=== PATIENT | female | born 1995 | race Caucasian/White ===

== ENCOUNTER 2016-09-24 14:32 | Emergency (ER) | payer OTHER ==
[~2016-09-24] VITALS: Ht 165.1 cm; Wt 77.1 kg
--- NOTE | 2016-09-24 15:07 | ED HEADACHE COMPLAINT ---
History of Present Illness General Chief Complaint: General Adult Stated Complaint: NAUSEA, VOMITING, MIGRAINE Source: patient, old records Exam Limitations: no limitations Vital Signs & Intake/Output Vital Signs & Intake/Output Vital Signs Date Time Temp Pulse Resp B/P B/P Pulse O2 O2 Flow FiO2 Mean Ox Delivery Rate 09/24 1654 97.9 62 18 111/65 99 Room Air 09/24 1440 97.7 58 16 126/78 99 Room Air Allergies Coded Allergies: amoxicillin (VIOLENTLY VOMITING 09/24/16) Reconcile Medications L-Norgest/E.estradion-E.estrad (Seasonique 0.15-0.03-0.01 Tab) 0.15 MG-30 MCG ( 84)/10 MCG (7) [id number] 1 TAB PO DAILY CONTROL (Reported) Multivitamin (Multi-Day Vitamins) 1 EACH TABLET 1 TAB PO DAILY SUPPLEMENT ( Reported) Triage Note: 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 PT STATES NOTHING WILL STAY DOWN AND NOW HER RODRIGUEZ IS GETTING WORSE. Triage Nurses Notes Reviewed? yes : No Patient currently breastfeeds: No HPI: Patient presents complaining of a migraine with photophobia as well as nausea and vomiting. Patient states she gets migraine whenever she gets dehydrated. The pain is frontal and is throbbing. There is no radiation of pain. She rates the headache at 8 out of 10. There is no neck pain. There is no fevers or chills. Past History Travel History Traveled to [place] past 21 day No Medical History Any Pertinent Medical History? see below for history Neurological: migraine Psychiatric: anxiety Surgical History Surgical History: non-contributory Psychosocial History What is your primary language Prydeinig Tobacco Use: Current Daily Use Daily Tobacco Use Amount/Type: => 5 Cigarettes daily ETOH Use: occasional use Illicit Drug Use: denies illicit drug use Family History Hx Contributory? No Review of Systems Review of Systems Constitutional: Reports: no symptoms. Eyes: Reports: no symptoms. Ears, Nose, Throat, Mouth: Reports: no symptoms. Respiratory: Reports: no symptoms. Cardiovascular: Reports: no symptoms. Gastrointestinal/Abdominal: Reports: see HPI, nausea, vomiting. Genitourinary: Reports: no symptoms. Musculoskeletal: Reports: no symptoms. Skin: Reports: no symptoms. Neurological/Psychological: Reports: see HPI, headache. Hematologic/Endocrine: Reports: no symptoms. Endocrine: Reports: no symptoms. Immunologic/Allergic: Reports: no symptoms. All Other Systems: Reviewed and Negative Physical Exam Physical Exam General Appearance: well developed/nourished, alert, awake, anxious, mild distress Head: atraumatic, normal appearance Eyes: Bilateral: PERRL, EOMI. Ears, Nose, Throat: normal pharynx, normal ENT inspection, DRY MUCOSA Neck: normal inspection, supple, full range of motion Respiratory: normal breath sounds, chest non-tender, no respiratory distress, lungs clear Cardiovascular: regular rate/rhythm, normal peripheral pulses Gastrointestinal: normal bowel sounds, soft, non-tender, no organomegaly Back: normal inspection, normal range of motion Extremities: normal inspection, normal capillary refill, normal range of motion, no edema Psychiatric: awake, alert, oriented x 3 Cranial Nerves: normal hearing, normal speech, PERRL Coordination/Gait: normal gait Motor/Sensory: no motor/sensory deficits Skin: intact, normal color, warm/dry Core Measures Severe Sepsis Present: No Septic Shock Present: No Progress Differential Diagnosis: migraine RODRIGUEZ, tension RODRIGUEZ Plan of Care: Current Medications Sig/Tanya Start time Last Medication Dose Stop Time Status Admin Ketorolac 30 MG ONCE ONE 09/24 1515 UNVr Tromethamine 09/24 1516 (Toradol) Ondansetron HCl 4 MG ONCE ONE 09/24 1515 UNVr (Zofran) 09/24 1516 Sodium Chloride 1,000 ML BOLUS ONE 09/24 1515 UNVr (Normal Saline 0.9%) 09/24 1614 Sodium Chloride 1,000 ML BOLUS ONE 09/24 1515 UNVr (Normal Saline 0.9%) 09/24 1614 Departure Departure Disposition: HOME OR SELF CARE Condition: Stable Clinical Impression Primary Impression: Migraine Qualifiers: Migraine type: without aura Status migrainosus presence: without status migrainosus Intractability: not intractable Qualified Code: G43.009 - Migraine without aura, not intractable, without status migrainosus Referrals: VIKY RODRIGUEZ MD (PCP/Family) Additional Instructions: RETURN FOR ANY CONCERNS Departure Forms: Customer Survey General Discharge Information
[2016-09-24] MEDS ORDERED: MULTI-DAY VITA1 EACH PO (16:21)
[2016-09-24] MEDS ORDERED: SEASONIQUE 0.11 EACH PO (16:21)
[2016-09-24 16:54] VITALS: BP 111/65
== END 2016-09-24 16:55 ==
LOC: ERH 14:32
DX: G43.909 Migraine, unspecified, not intractable, without status migrainosus (principal)
CPT/HCPCS: 96374; 96375; J0131; J1885; J2405